=== PATIENT | male | born 1950 ===

== ENCOUNTER 2019-10-16 13:26 | Inpatient (IN) ==
[2019-10-16] MEDS ORDERED: Naloxone 0.4 MG/ML INJ IVP PRN (15:56)
[2019-10-16] MEDS ORDERED: Acetaminophen 325 MG TABLET PO PRN (15:56)
[2019-10-16] MEDS ORDERED: Lidocaine 1% 20 ML MDV ID ONE (17:25)
[2019-10-16] MEDS: Piperacillin/Tazobactam 3.375 GM in 0.9 % Sodium Chloride Mini Bag 100 ML IVPB SCH (17:53)
[2019-10-16] MEDS: *HR* HYDROcodone/Acet 5/325 mg TABLET PO PRN (21:21)
[2019-10-16] MEDS: *HR* Heparin 5,000 UNIT/ML VIAL SQ SCH (21:22)
[2019-10-16] MEDS: Vancomycin 1,500 MG/265 ML IV.SOLN IVPB SCH (21:36)
[2019-10-17] MEDS: Piperacillin/Tazobactam 3.375 GM in 0.9 % Sodium Chloride Mini Bag 100 ML IVPB SCH ×3 (00:31→19:37)
[2019-10-17 03:23] LABS: Basophils # 0.1 K/mcL (0.0-0.2); Basophils % 0.6 %; Eosinophils # 0.2 K/mcL (0.0-0.6); Eosinophils % 2.4 %; Hematocrit 41.1 % (37.5-50.1); Hemoglobin 12.5 g/dL (12.9-16.9); Immature Granulocytes % 1.2 % (0-4); Lymphocytes # 0.9 K/mcL (0.6-4.6); Mean Corpuscular HGB Conc 30.4 g/dL (31.6-35.5); Mean Corpuscular Hemoglobin 25.2 pg (28.0-33.3); Mean Corpuscular Volume 82.7 fL (83.0-100.0); Mean Platelet Volume 10.9 fL (9.4-12.4); Monocytes % 11.1 %; Neutrophils # 6.6 K/mcL (1.6-8.9); Platelet Count 237 K/mcL (140-400); Red Blood Count 4.97 M/mcL (4.19-5.50); Red Cell Distribution Width 16.4 % (11.5-14.5); Segmented Neutrophils % 74.7 %; White Blood Count 8.8 K/mcL (4.3-11.1)
[2019-10-17 03:42] LABS: Calcium 7.8 mg/dL (8.6-10.3); Potassium 3.6 mEq/L (3.5-5.1)
[2019-10-17] MEDS: *HR* Heparin 5,000 UNIT/ML VIAL SQ SCH (05:19)
[2019-10-17] MEDS ORDERED: Ipratropium/Albuterol Neb 3 ML IH PRN (09:12)
[2019-10-17] MEDS: allopurinoL 300 MG TABLET PO SCH (11:39)
[2019-10-17] MEDS: Metoprolol XL (24 HR) Succ 25 MG TAB.ER.24H PO SCH (11:39)
[2019-10-17] MEDS: Simethicone 80 MG TAB.CHEW PO SCH (11:39)
[2019-10-17] MEDS: Sennosides 8.6 MG TABLET PO SCH (11:39)
[2019-10-17] MEDS ORDERED: Aminoglycoside Consult 1 EACH MC ONE (14:11)
[2019-10-17] MEDS: *HR* HYDROcodone/Acet 5/325 mg TABLET PO PRN (20:34)
[2019-10-17] MEDS: Vancomycin 1,500 MG/265 ML IV.SOLN IVPB SCH (22:12)
[2019-10-18] MEDS: Melatonin 3 MG TABLET PO PRN ×2 (00:18→20:58)
[2019-10-18] MEDS: Piperacillin/Tazobactam 3.375 GM in 0.9 % Sodium Chloride Mini Bag 100 ML IVPB SCH ×3 (01:51→16:02)
[2019-10-18 06:48] LABS: Basophils # 0.1 K/mcL (0.0-0.2); Basophils % 0.8 %; Eosinophils # 0.4 K/mcL (0.0-0.6); Eosinophils % 4.6 %; Hematocrit 40.7 % (37.5-50.1); Hemoglobin 12.7 g/dL (12.9-16.9); Immature Granulocytes % 1.5 % (0-4); Lymphocytes % 13.2 %; Mean Corpuscular HGB Conc 31.2 g/dL (31.6-35.5); Mean Corpuscular Volume 83.4 fL (83.0-100.0); Mean Platelet Volume 10.9 fL (9.4-12.4); Monocytes # 0.8 K/mcL (0.0-1.3); Monocytes % 10.4 %; Neutrophils # 5.5 K/mcL (1.6-8.9); Platelet Count 221 K/mcL (140-400); Red Blood Count 4.88 M/mcL (4.19-5.50); Red Cell Distribution Width 16.2 % (11.5-14.5); Segmented Neutrophils % 69.5 %; White Blood Count 7.9 K/mcL (4.3-11.1)
[2019-10-18 07:07] LABS: Calcium 8.3 mg/dL (8.6-10.3); Potassium 3.8 mEq/L (3.5-5.1)
[2019-10-18] MEDS: Simethicone 80 MG TAB.CHEW PO SCH (08:47)
[2019-10-18] MEDS: Sennosides 8.6 MG TABLET PO SCH (08:48)
[2019-10-18] MEDS: allopurinoL 300 MG TABLET PO SCH (08:48)
[2019-10-18] MEDS: Metoprolol XL (24 HR) Succ 25 MG TAB.ER.24H PO SCH (08:49)
[2019-10-18] MEDS: Vancomycin 1,500 MG/265 ML IV.SOLN IVPB SCH (21:54)
[2019-10-19 00:54] LABS: Basophils # 0.1 K/mcL (0.0-0.2); Basophils % 0.7 %; Eosinophils # 0.4 K/mcL (0.0-0.6); Eosinophils % 5.5 %; Hematocrit 39.8 % (37.5-50.1); Hemoglobin 12.3 g/dL (12.9-16.9); Immature Granulocytes % 2.3 % (0-4); Lymphocytes # 1.1 K/mcL (0.6-4.6); Lymphocytes % 15.6 %; Mean Corpuscular HGB Conc 30.9 g/dL (31.6-35.5); Mean Corpuscular Hemoglobin 25.1 pg (28.0-33.3); Mean Corpuscular Volume 81.1 fL (83.0-100.0); Mean Platelet Volume 10.3 fL (9.4-12.4); Monocytes # 0.6 K/mcL (0.0-1.3); Monocytes % 8.2 %; Neutrophils # 4.6 K/mcL (1.6-8.9); Platelet Count 274 K/mcL (140-400); Red Blood Count 4.91 M/mcL (4.19-5.50); Red Cell Distribution Width 16.2 % (11.5-14.5); Segmented Neutrophils % 67.7 %; White Blood Count 6.9 K/mcL (4.3-11.1)
[2019-10-19 01:03] LABS: Magnesium 1.9 mg/dL (1.6-2.6); Phosphorous 2.6 mg/dL (2.7-4.5)
[2019-10-19 01:04] LABS: BUN/Creatinine Ratio 15 (6-26); Blood Urea Nitrogen 21 mg/dL (8-23); Calcium 8.3 mg/dL (8.6-10.3); Carbon Dioxide 23 mEq/L (23-29); Chloride 105 mEq/L (98-107); Glucose 110 mg/dL (70-105); Osmolality,Calculated 288 (280-300); Potassium 3.6 mEq/L (3.5-5.1); Sodium 137 mEq/L (136-145); eGFR For African Americans > 60 (> 60); eGFR For Non-African Americans 51 (> 60)
[2019-10-19] MEDS: Piperacillin/Tazobactam 3.375 GM in 0.9 % Sodium Chloride Mini Bag 100 ML IVPB SCH ×2 (01:24→08:51)
[2019-10-19] MEDS: Sennosides 8.6 MG TABLET PO SCH (09:00)
[2019-10-19] MEDS: Metoprolol XL (24 HR) Succ 25 MG TAB.ER.24H PO SCH (09:01)
[2019-10-19] MEDS: allopurinoL 300 MG TABLET PO SCH (09:02)
[2019-10-19] MEDS: Simethicone 80 MG TAB.CHEW PO SCH (09:02)
[2019-10-19 10:25] VITALS: BP 119/75
== END 2019-10-19 16:24 | disposition home or self-care (01) | DRG 603 ==
LOC: 3ANU → SUATTDRO 15:49
PROVIDERS: ADMIT Internal Medicine; ATTEND Internal Medicine